=== PATIENT | female | born 1990 | race Caucasian/White ===

== ENCOUNTER 2020-05-24 09:45 | Outpatient (CLI) | payer OTHER, SELFPAY ==
--- NOTE | ~2020-05-24 | MM_ITS ---
EXAMINATION: MM screening sana BI w francesco HISTORY: Screening TECHNIQUE: Craniocaudal and mediolateral oblique 3-D tomosynthesis images were obtained and synthetic 2-D images were generated. CAD analysis was submitted and interpreted. COMPARISON: 05/11/2019 BREAST PARENCHYMAL COMPOSITION: The breasts are heterogeneously dense, which may obscure small masses . FINDINGS: There is no evidence of suspicious mass, calcification, or architectural distortion to sugg est malignancy in either breast. There has been no suspicious interval change. IMPRESSION: 1. No mammographic evidence of malignancy. 2. Recommend routine screening mammography in one year. BI-RADS Category 1: Negative Reviewed, dictated and finalized at location A.
== END 2020-05-24 09:46 | disposition home or self-care (01) ==
LOC: CHSIMG 09:49
PROVIDERS: PCP Internal Medicine
DX: Z12.31 Encounter for screening mammogram for malignant neoplasm of breast (principal)
CPT/HCPCS: 77063; 77067

== ENCOUNTER 2021-01-24 13:02 | Outpatient (CLI) | payer OTHER, SELFPAY ==
--- NOTE | ~2021-01-24 | US_ITS ---
US soft tissue LE RT 01/24/2021 13:41 Indication: Palpable soft tissue lump in right mid calf posteriorly. Procedure: High-resolution ultrasound of the right posterior mid calf Comparison: No prior studies for comparison. Findings: There is normal heterogeneous soft tissues without discrete solid or cystic mass. Impression: 1: Normal soft tissue ultrasound of the right calf without discrete mass. Reviewed, dictated and finalized at location A. Impression: 1: Normal soft tissue ultrasound of the right calf without discrete mass.
== END 2021-01-24 13:03 | disposition home or self-care (01) ==
LOC: CHSIMG 13:05
PROVIDERS: PCP Internal Medicine; Visit Provider Nurse Practitioner Family
DX: R22.41 Localized swelling, mass and lump, right lower limb (principal)
CPT/HCPCS: 76882

== ENCOUNTER 2022-10-22 09:27 | Outpatient (CLI) | payer OTHER, SELFPAY ==
--- NOTE | ~2022-10-22 | MMUS_ITS ---
EXAMINATION: MM diagnostic sana BI w francesco, US breast BI complete HISTORY: Bilateral cloudy, clear and white nipple discharge since 2018 TECHNIQUE: Bilateral full field ML, MLO and CC and spot right lateral rotated CC 3-D tomosynthesis im ages were performed and synthetic 2-D images were generated. CAD analysis was submitted and interpret ed. High resolution bilateral complete breast ultrasound examination including all 4 quadrants and chambers bareolar area was performed. COMPARISON: 05/24/2020 bilateral screening mammogram BREAST PARENCHYMAL COMPOSITION: The breasts are heterogeneously dense, which may obscure small masses . FINDINGS: MAMMOGRAPHIC FINDINGS: Approximately 3.7 mm oval opacity is noted in the posterior central right breast on craniocaudal view , with similar finding on 05/24/2020 right CC view. No suspicious mass or architectural distortion, malignant calcification, skin thickening or retractio n or significant new or developing density is detected. ULTRASOUND: Right breast: 9:00 near nipple: 2.2 x 2.7 x 2.9 mm circumscribed hypoechoic lesion, with through transmission, with out abnormal shadowing, benign in appearance Left breast: 3:00: Parallel circumscribed complex largely sonolucent area with some internal echoes, measuring 2.6 x 7.5 x 7.0 mm, without internal vascularity or abnormal posterior shadowing, benign in appearance 9:00 near nipple: 1.9 x 3 mm largely sonolucent circumscribed lesion, without posterior shadowing IMPRESSION: 1. Benign findings 2. Routine annual mammographic screening is recommended. Consider galactography as clinically appropr iate. BI-RADS Category 2: Benign finding(s). Reviewed, dictated and finalized at location A. IMPRESSION: 1. Benign findings 2. Routine annual mammographic screening is recommended. Consider galactography as clinically appropriate. BI-RADS Category 2: Benign finding(s).
== END 2022-10-22 09:28 | disposition home or self-care (01) ==
LOC: CHSIMG 09:29
PROVIDERS: PCP Internal Medicine; Visit Provider Nurse Practitioner Family
DX: N64.52 Nipple discharge (principal)
CPT/HCPCS: 76641; 77062; 77066; G0279

== ENCOUNTER 2023-02-17 12:19 | Outpatient (CLI) | payer OTHER, SELFPAY ==
[2023-02-17 12:44] LABS: Basophils Absolute Auto 0.05 K/mm3 (0.00-0.10); Basophils Percent Auto 0.8 % (0.0-1.0); Eosinophils Absolute Auto 0.05 K/mm3 (0.02-0.50); Eosinophils Percent Auto 0.8 % (1.0-6.0); Hematocrit 39.9 % (35.0-49.0); Hemoglobin 13.3 g/dL (12.0-15.0); Immature Granulocyte Absolute 0.02 K/mm3 (0.00-0.00); Immature Granulocyte Percent A 0.3 % (0.0-0.0); Lymphocytes Absolute Auto 1.83 K/mm3 (1.10-4.50); Lymphocytes Percent Auto 29.1 % (18.0-42.0); Mean Corpuscular HGB Conc 33.3 g/dL (32.0-36.0); Mean Corpuscular Hemoglobin 31.1 pg (27.0-31.0); Mean Corpuscular Volume 93.4 fL (78.0-102.0); Mean Platelet Volume 9.8 fl (9.2-11.8); Monocytes Percent Auto 7.9 % (2.0-11.0); Neutrophils Absolute Auto 3.8 K/mm3 (1.7-7.2); Neutrophils Percent Auto 61.1 % (50.0-70.0); Platelet Count Result 290 K/mm3 (150-420); Red Blood Count 4.27 M/mm3 (4.20-5.40); White Blood Count 6.3 K/mm3 (4.8-10.8)
[2023-02-17 13:23] LABS: Alanine Aminotransferase 25 U/L (14-59); Alkaline Phosphatase 46 U/L (46-116); Anion Gap 10 mmol/L (8-16); Aspartate Amino Transferase 14 U/L (15-37); Bilirubin,Total 0.8 mg/dL (0.00-1.00); Blood Urea Nitrogen 10 mg/dL (7-18); Calcium 8.9 mg/dL (8.5-10.1); Carbon Dioxide 27 mmol/L (21-32); Chloride 105 mmol/L (98-108); Estimated Glomerular Filt Rate > 60; Free T4 Free Thyroxine 0.88 ng/dL (0.76-1.46); Glucose 93 mg/dL (70-99); Osmolality Calculated 293 mOsm/kg (285-295); Potassium 4.5 mmol/L (3.5-5.1); Sodium 142 mmol/L (136-145); Thyroid Stimulating Hormone 1.75 uIU/mL (0.36-3.74); Total Protein 6.9 g/dL (6.4-8.2)
[2023-02-17 13:24] LABS: CRP < 0.5 mg/dL (0.0-0.9)
[2023-02-20 05:26] LABS: FSH 3.4 mIU/mL (***); LH 4.2 mIU/mL (***)
[2023-02-21 01:11] LABS: Testosterone Total 33 ng/dL (2-45)
== END 2023-02-17 12:20 | disposition home or self-care (01) ==
LOC: CHSLAB 12:21
PROVIDERS: PCP Internal Medicine; Visit Provider Nurse Practitioner Family
DX: N64.4 Mastodynia (principal); N64.52 Nipple discharge
CPT/HCPCS: 36415; 80053; 82672; 83001; 83002; 84403; 84439; 84443; 85025; 86140

== ENCOUNTER 2023-02-21 08:09 | Outpatient (CLI) | payer OTHER, SELFPAY ==
--- NOTE | ~2023-02-21 | US_ITS ---
US breast LT complete DATE: 02/21/2023 08:39 INDICATION: Left breast swelling, nipple discharge, chest swelling TECHNIQUE: Real-time and color flow imaging of complete left breast including all 4 quadrants and sub areolar area COMPARISON: 10/23/2019 bilateral complete breast ultrasound 10/22/2022 bilateral diagnostic mammogram FINDINGS: 3:00 3 cm from nipple: Parallel circumscribed 9.4 x 2.8 x 6.3 mm septated cyst without internal vascu larity, with through transmission. This appears benign. 7:00 3 cm from nipple: There is an irregular hypoechoic area measuring 8 x 7.4 x 8.1 mm dimension, wi th mild posterior shadowing. Ultrasound-guided biopsy is recommended. Multiple lymph nodes are noted in the left axilla. There is one mildly irregular lymph node which dorothy ears more bulky than the others, measuring up to 5.6 x 9.7 mm dimension. Ultrasound-guided biopsy daria uld be considered. IMPRESSION: Irregular hypoechoic up to 8.1 mm area at 7:00 3 cm from nipple with mild posterior shado wing; ultrasound-guided biopsy is recommended Consider ultrasound-guided biopsy of mildly irregular 5.6 x 9.7 mm left axillary lymph node BI-RADS Category 4: Suspicious abnormality; biopsy should be considered Dr. Rodriguez telephoned the report and ultrasound-guided biopsy recommendations to physician offset press assistant Cyrus vickers on 02/21/2023 at 0912 hours Reviewed, dictated and finalized at Location A. Reviewed, dictated and finalized at location A. IMPRESSION: Irregular hypoechoic up to 8.1 mm area at 7:00 3 cm from nipple wit h mild posterior shadowing; ultrasound-guided biopsy is recommended Consider ultrasound-guided biopsy of mildly irregular 5.6 x 9.7 mm left axillar y lymph node BI-RADS Category 4: Suspicious abnormality; biopsy should be considered Dr. Rodriguez telephoned the report and ultrasound-guided biopsy recommendations to physician assistant Sahni on 02/21/2023 at 0912 hours
== END 2023-02-21 08:10 | disposition home or self-care (01) ==
LOC: CHSIMG 08:11
PROVIDERS: PCP Internal Medicine; Visit Provider Nurse Practitioner Family
DX: N64.52 Nipple discharge (principal); N64.4 Mastodynia; R92.8 Other abnormal and inconclusive findings on diagnostic imaging of breast
CPT/HCPCS: 76641

== ENCOUNTER 2023-03-18 09:10 | Outpatient (CLI) | payer BC, SELFPAY ==
--- NOTE | ~2023-03-18 | US_ITS ---
EXAMINATION: Consultation US HISTORY: Patient presents for ultrasound-guided biopsy of a mass of the lower inner left breast. TECHNIQUE: Limited left breast ultrasound was performed. FINDINGS: With real-time imaging, no discrete reproducible mass is identified as a target for ultraso und-guided biopsy. This was discussed with the patient and a plan for six-month follow-up targeted le ft breast ultrasound was agreed upon. IMPRESSION: No discrete mass identified as a target for ultrasound-guided biopsy. Follow-up targeted left breast ultrasound in six months is recommended. BI-RADS category 3, probably benign findings. Reviewed, dictated and finalized at location A.
== END 2023-03-18 09:11 | disposition home or self-care (01) ==
PROVIDERS: PCP Internal Medicine; Visit Provider Nurse Practitioner Family
DX: N63.20 Unspecified lump in the left breast, unspecified quadrant (principal); R92.8 Other abnormal and inconclusive findings on diagnostic imaging of breast
CPT/HCPCS: 99199

== ENCOUNTER 2023-10-06 13:31 | Emergency (ER) | payer SELFPAY ==
[2023-10-06 13:39] VITALS: BP 136/85; PULSE 76; RESP 16; TEMP 36.6; O2SAT 100
--- NOTE | 2023-10-06 13:42 | ED.WEAKNESS ---
HPI - Weakness General Chief complaint: Weakness Stated complaint: weakness Time Seen by Provider: 10/06/23 13:36 History of Present Illness HPI Narrative: This is a 32-year-old female with no known significant past medical history, who presents to the emergency department complaining of fatigue and nausea. The patient states 1 week ago, she developed nausea, cough, general malaise and headache that she attributed to influenza a. She states family members had similar symptoms. Yesterday, she vomited several times without blood. Today she feels generalized weakness and fatigue. She has no other complaints at this time. Related Data Home Medications Medication Instructions Recorded Confirmed meclizine 25 mg tablet 25 mg PO TID 10/06/23 10/06/23 ondansetron 4 mg disintegrating 4 mg PO Q6H PRN Nausea And Vomiting 10/06/23 10/06/23 tablet Allergies Allergy/AdvReac Type Severity Reaction Status Date / Time iodine Allergy Intermediate hives Unverified 10/06/23 13:45 Review of Systems Review of Systems: CONSTITUTIONAL: Denies fever, chills, or sweats. ENT: Denies rhinorrhea, congestion, sore throat, or otalgia. CARDIOVASCULAR: Denies chest pain, palpitations, or edema. RESPIRATORY: Intermittent cough productive of nonbloody sputum Denies dyspnea. GASTROINTESTINAL: Intermittent nausea and nonbloody vomiting Denies abdominal pain, or diarrhea. GENITOURINARY: LMP 2013; Denies dysuria or hematuria. SKIN: Denies rash or itching. MUSCULOSKELETAL: Diffuse myalgias Denies back pain, joint pain, NEUROLOGIC: Headache Denies numbness, dizziness, or weakness. PSYCHIATRIC: Denies anxiety or depression. PMFSH Past Medical History Medical History (Updated 10/06/23 @ 15:04 by Parag Mejia MD) No significant past medical history Surgical History Surgical History (Updated 10/06/23 @ 13:49 by Parag Mejia MD) H/O tubal ligation Social History Social History Smoking status: Current some day smoker Alcohol intake: never Substance use: never Exam Narrative: GENERAL: Well-developed, well-nourished, appears fatigued HEAD: Normocephalic, atraumatic. EYES: PERRLA and EOMI. ENT: Poor dentition. Nares clear, no rhinorrhea or epistaxis. Mucous membranes dry. Oropharynx without tonsillar hypertrophy exudate or other lesions. CHEST: Clear to auscultation. No respiratory distress. No wheezes rales or rhonchi HEART: Regular rate and rhythm. No murmur heard. Normal peripheral pulses. ABDOMEN: Soft, nontender, nondistended, normal active bowel sounds. EXTREMITIES: Normal range of motion. No edema. SKIN: Warm, dry, no rash. NEURO: Alert and oriented x3. No focal deficit. Moving all 4 limbs spontaneously PSYCH: Normal mood and affect. Course Course Emergency Course: 15:01 - On re-evaluation, the patient states her lightheadedness and nausea have improved after IV fluids. Will discharge with nausea medications and recommendation for primary care follow-up. I discussed these findings recommendations with the patient. Discussed return and emergency precautions including signs/symptoms of acute abdomen and respiratory distress. The patient voiced understanding and is comfortable with the plan. All questions answered to her satisfaction. Vital Signs Vital signs: Vital Signs Temperature 98 F 10/06/23 13:39 Pulse Rate 76 10/06/23 13:39 Respiratory Rate 16 10/06/23 13:39 Blood Pressure 136/85 10/06/23 13:39 Pulse Oximetry 100 10/06/23 13:39 Oxygen Delivery Room Air 10/06/23 13:39 Temperature 98.0 F 10/06/23 15:12 Pulse Rate 70 10/06/23 15:12 Respiratory Rate 17 10/06/23 15:12 Blood Pressure 113/80 10/06/23 15:12 Pulse Oximetry 97 10/06/23 15:12 Oxygen Delivery Room Air 10/06/23 15:12 MDM - Weakness MDM Narrative Medical decision making narrative: Plan: IV fluids, antiemetics reassess Differential
[2023-10-06 14:00] VITALS: BP 107/79; PULSE 70; RESP 17; O2SAT 97
[2023-10-06] MEDS: LACTATED RINGERS 1,000 ML 999 ML IV CONT (14:15)
[2023-10-06] MEDS: ONDANSETRON INJ 4 MG/2 ML VIAL IV PUSH (14:16)
[2023-10-06 14:30] VITALS: BP 113/84; PULSE 68; RESP 17; O2SAT 97
--- NOTE | 2023-10-06 15:00 | PC.NURSE ---
On 10/06/23, the student, Nicci Perez, provided care and completed [facility] documentation on this patient. I have reviewed the student's documentation and agree with the findings.
[2023-10-06 15:12] VITALS: BP 113/80; PULSE 70; RESP 17; TEMP 36.7; O2SAT 97
== END 2023-10-06 15:12 | disposition home or self-care (01) ==
PROVIDERS: Emergency Provider Preventive Medicine Aerospace Medicine; PCP Internal Medicine
DX: E86.0 Dehydration (principal); J00 Acute nasopharyngitis [common cold]; R11.2 Nausea with vomiting, unspecified; F17.200 Nicotine dependence, unspecified, uncomplicated; Z79.899 Other long term (current) drug therapy
CPT/HCPCS: 96361; 96374; 99284; J2405; J7120

== ENCOUNTER 2024-04-26 14:38 | Outpatient (CLI) | payer MEDICAID, SELFPAY ==
--- NOTE | ~2024-04-26 | XR_ITS ---
EXAMINATION: XR elbow LT min 3V DATE: 04/26/2024 14:59 INDICATION: Epicondylitis TECHNIQUE: Anteroposterior, two oblique and lateral views of the left elbow were obtained. COMPARISON: None. FINDINGS: Alignment is normal. No fracture or joint effusion. Joint spaces are normal. No erosions. No osteophy olaf or enthesophytes. Soft tissues are unremarkable. IMPRESSION: 1. Normal left elbow radiographs. Reviewed, dictated and finalized at location B.
== END 2024-04-26 14:39 | disposition home or self-care (01) ==
PROVIDERS: PCP Nurse Practitioner Family; Visit Provider Nurse Practitioner Family
DX: M77.12 Lateral epicondylitis, left elbow (principal)
CPT/HCPCS: 73080

== ENCOUNTER 2024-09-03 08:48 | Outpatient (CLI) | payer OTHER, SELFPAY ==
--- NOTE | ~2024-09-03 | MM_ITS ---
EXAMINATION: MM diagnostic sana BI w francesco HISTORY: Left breast pain TECHNIQUE: 3-D tomosynthesis images of the breasts were performed and synthetic 2-D images were gener ated. CAD analysis was submitted and interpreted. COMPARISON: 10/22/2022: 05/24/2020 BREAST PARENCHYMAL COMPOSITION:Dense: The breasts are heterogeneously dense, which may obscure small masses. FINDINGS: Parenchymal pattern of the breasts is unchanged. No suspicious mass lesion or distortion. N o suspicious microcalcification. IMPRESSION: No mammographic evidence for malignancy. BI-RADS Category 1: Negative Reviewed, dictated and finalized at location . [employer]
== END 2024-09-03 08:49 | disposition home or self-care (01) ==
LOC: CHSIMG 08:49
PROVIDERS: PCP Internal Medicine; Visit Provider Nurse Practitioner Family
DX: Z12.31 Encounter for screening mammogram for malignant neoplasm of breast (principal)
CPT/HCPCS: 77062; 77066; G0279

== ENCOUNTER 2024-09-14 13:50 | Outpatient (RCR) | payer OTHER, SELFPAY ==
--- NOTE | 2024-09-14 14:57 | OPREHPOC ---
Outpatient Therapy Plan of Care This is a Multidisciplinary Plan of Care that may contain components documented by all disciplines (PT, OT, and ST.) PT Problem 1 PT Problem #1 Knowledge Deficit PT Goal 1 Goal / Goal Update The patient will be independent in a home exercise program. Target Visit 2 PT Problem 2 PT Problem #2 Pain PT Goal 1 Goal / Goal Update The patient will report no greater than 3/10 left upper back pain with stack matcher. Target Visit 10 PT Problem 3 PT Problem #3 Impaired Functional Mobility PT Goal 1 Goal / Goal Update The patient will demonstrate 10% or less self perceived disability per the Back Index questionnaire. Target Visit 10 PT Problem 4 PT Problem #4 Impaired Strength PT Goal 1 Goal / Goal Update The patient will demonstrate 4/5 left middle trapezius, rhomboid, and lower trapezius strength to improve scapular mechanics. Target Visit 10
--- NOTE | 2024-09-14 14:57 | PTOPEVAL1 ---
Assessment and note entered by Lorena Christianson, PT Evaluation Information Assessment Status Evaluation ICD-10 Condition Codes (PT) Pain in Thoracic Spine M54.6 Onset 08/25/24 Subjective Information Yolande Diaz reports she fell into the corner of a wall when she was 15 and she has had pain off and on there since then. She hit the left shoulder blade when she fell and has had increased pain when she performs repetitive shoulder movements. She has had treatment for it in the past including PT which did not help much. She is hoping to get a MRI but has to try PT first. She has constant pain in the left upper back that worsens with repetitive use of the left arm. 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 Reported Pain Level Pain Score 3: Self Report Assessment PT Clinical Summary Yolande Diaz presents with chronic left upper back pain that has worsened over the years. She has difficulty with repetitive activties like laundry and dishes. She objectively demonstrates left scapular dyskinesia, tenderness in the left periscapular muscles, weakness in the left periscapular muscles, and decreased left shoulder abduction AROM. She will benefit from skilled PT to address these limitations. Plan of Care Interventions Electrical Stimulation,Hot Pack/Cold Pack,Manual Therapy,Neuro Re-education,Patient/Caregiver Education,Therapeutic Activities,Therapeutic Exercise PT Services Indicated Yes Treatment Frequency and 2 times a week for 10 visits Duration These treatments will address the objective and functional deficits as defined above. The patient will be advanced safely and appropriately in order for the patient to progress towards his/her prior level of function. Additional exercises will be introduced and as well as a comprehensive home exercise program upon discharge, if needed, ?to ensure carryover of functional gains achieved in the clinic. This treatment plan has been reviewed and agreement upon by the patient.
--- NOTE | 2024-09-21 16:36 | PCPTNOTE ---
Patient called & cancelled scheduled appointment this date due to having a fever. -Lorena Christianson, PT
--- NOTE | 2024-10-07 13:20 | PCPTNOTE ---
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
--- NOTE | 2024-10-14 14:51 | PCPTNOTE ---
No call, no show.
--- NOTE | 2024-10-26 15:00 | OPREHPOC ---
Outpatient Therapy Plan of Care This is a Multidisciplinary Plan of Care that may contain components documented by all disciplines (PT, OT, and ST.) PT Problem 1 PT Problem #1 Knowledge Deficit PT Goal 1 Goal / Goal Update The patient will be independent in a home exercise program. Target Visit 2 Progress Met PT Problem 2 PT Problem #2 Pain PT Goal 1 Goal / Goal Update The patient will report no greater than 3/10 left upper back pain with area safety manager. Target Visit 10 Progress Partially Met PT Problem 3 PT Problem #3 Impaired Functional Mobility PT Goal 1 Goal / Goal Update The patient will demonstrate 10% or less self perceived disability per the Back Index questionnaire. Target Visit 10 Progress Not Met PT Problem 4 PT Problem #4 Impaired Strength PT Goal 1 Goal / Goal Update The patient will demonstrate 4/5 left middle trapezius, rhomboid, and lower trapezius strength to improve scapular mechanics. Target Visit 10 Progress Not Met
--- NOTE | 2024-10-26 15:00 | PTOPDC ---
Assessment and note entered by Lorena Christianson, PT Evaluation Information Assessment Status Progress ICD-10 Condition Codes (PT) Pain in Thoracic Spine M54.6 Onset 08/25/24 Subjective Information Yolande Diaz reports that her pain in her back has improved but she still has burning in her back when she uses her arms a lot. She feels the burning is aggravated by driving, doing dishes, and walking. She has been performing home exercises and does feel she is stronger. Reported Pain Level Pain Score 2: Self Report Assessment PT Clinical Summary Yolande Diaz has completed 10 skilled PT visits for pain in the thoracic spine. She reports pain in her upper back is mostly resolved however , she still has burning in the left upper back that is aggravated by driving and doing dishes. She objectively demonstrates improved left shoulder and scapular strength and improved left scapular control. She does still have mild winging and dyskinesia noted. She will be discharged to an independent [facility] and was referred back to her physician regarding ongoing burning pain at the left scapula. Plan of Care PT Services Indicated No
== END 2024-10-26 16:56 | disposition home or self-care (01) ==
LOC: CHSPT 13:50
PROVIDERS: Visit Provider Nurse Practitioner Family
DX: M54.6 Pain in thoracic spine (principal)
CPT/HCPCS: 97014; 97110; 97112; 97140; 97161; 97750; G0283